=== PATIENT | male | born 1990 ===

== ENCOUNTER 2018-03-30 09:47 | Inpatient (IN) | payer OTHER ==
[~2018-03-30] VITALS: Ht 165.1 cm; Wt 63.5 kg
[2018-04-02] MEDS ORDERED: ZITHROMAX600 MG PO (10:57)
[2018-04-02] MEDS ORDERED: ZITHROMAX500 MG PO (11:00)
== END 2018-04-02 12:05 | disposition home or self-care (01) | DRG 195 ==
LOC: ER 09:47 → MEDJ 17:50
PROC: 3E0F7GC Introduction of Other Therapeutic Substance into Respiratory Tract, Via Natural or Artificial Opening (ICD-10-PCS; principal; 2018-03-30)
PROC: 4A033R1 Measurement of Arterial Saturation, Peripheral, Percutaneous Approach (ICD-10-PCS; 2018-03-30)
PROC: BB24ZZZ Computerized Tomography (CT Scan) of Bilateral Lungs (ICD-10-PCS; 2018-03-30)
DX: J18.1 Lobar pneumonia, unspecified organism (principal); F17.210 Nicotine dependence, cigarettes, uncomplicated